=== PATIENT | male | born 1975 | race Hispanic/Latino ===

== ENCOUNTER 2022-08-02 06:30 | Day surgery (SDC) | payer OTHER ==
[2022-07-29 10:24] LABS: BASOPHILS % (AUTO) 0.4 % (0.0-5.0); HEMATOCRIT 42.2 % (42-54); LYMPHOCYTES % (AUTO) 31.9 % (21.0-51.0); MEAN CORPUSCULAR HEMOGLOBIN 31.1 pg (27.0-33.0); MEAN CORPUSCULAR HGB CONC 34.1 g/dL (32.0-36.0); MEAN CORPUSCULAR VOLUME 91.1 fL (79-99); MONOCYTES % (AUTO) 8.6 % (3.0-13.0); NEUTROPHILS % (AUTO) 55.7 % (40.0-77.0); PLATELET COUNT (AUTO) 198 K/uL (130-400); RED BLOOD CELL COUNT(AUTO) 4.63 MIL/uL (4.50-6.20); RED CELL DISTRIBUTION WIDTH 13.1 % (11.0-15.5); WHITE BLOOD COUNT (AUTO) 5.7 K/uL (4.8-10.8)
[2022-07-29 10:28] LABS: CREATININE 0.8 mg/dL (0.5-1.5)
[2022-07-29] MEDS: CEFAZOLIN SODIUM 1 GM VIAL IVPB SCH (10:30)
[2022-07-30 10:00] VITALS: BP 131/77
[~2022-08-02] VITALS: Ht 172.7 cm; Wt 89.6 kg
[2022-08-02] VITALS (17 sets, daily range): BP systolic 109–139; BP diastolic 61–96
[~2022-08-02 06:30] MED LIST: 0.9%NACL 1000ML 1,000 ML IV SCH; BICT1TAB PO; BUPIVACAINE/PF 0.5% 10ML VIAL ONE; BUSP10TA3 PO; PRAZ1CAP5 PO; SERT-440 PO; ZOLP10TA2 PO
[2022-08-02] MEDS ORDERED: LACTATED RINGERS 1000ML 1,000 ML IV ONE (06:54)
[2022-08-02] MEDS ORDERED: SUCCINYLCHOLINE 200MG/10ML SYR ONE (07:21)
[2022-08-02] MEDS ORDERED: LIDOCAINE PF 100MG/5ML (2%) SYRINGE 5ML ONE (07:21)
[2022-08-02] MEDS ORDERED: MIDAZOLAM HCL 1 MG/ML 2ML VIAL ONE (07:22)
[2022-08-02] MEDS ORDERED: PROPOFOL 10 MG/ML 20ML VIAL IV ONE (07:22)
[2022-08-02] MEDS ORDERED: FENTANYL CITRATE PF 50 MCG/1 ML 2ML VIAL ONE (07:23)
[2022-08-02] MEDS ORDERED: ROCURONIUM 10MG/1ML SYR 10 MG/ML ML ONE (07:23)
[2022-08-02] MEDS ORDERED: GLYCOPYRROLATE 1 MG/5 ML SYRINGE ONE (07:32)
[2022-08-02] MEDS ORDERED: ONDANSETRON 4MG INJ ONE ×2 (07:32→09:04)
[2022-08-02] MEDS ORDERED: NEOSTIGMINE 5MG/5ML SYR IV ONE (07:33)
[2022-08-02] MEDS: CEFAZOLIN SODIUM 1 GM VIAL IVPB SCH (08:03)
[2022-08-02] MEDS ORDERED: MEPERIDINE-PF 25 MG/ML SYG ONE ×2 (09:04→09:27)
== END 2022-08-02 10:45 | disposition home or self-care (01) ==
LOC: DAH 06:30
PROVIDERS: ATTEND Surgery
DX: D17.1 Benign lipomatous neoplasm of skin and subcutaneous tissue of trunk (principal); Z20.822 Contact with and (suspected) exposure to COVID-19; F41.9 Anxiety disorder, unspecified; F32.A Depression, unspecified; Z21 Asymptomatic human immunodeficiency virus [HIV] infection status; Z79.899 Other long term (current) drug therapy
CPT/HCPCS: 80048; 85025; 87426; 36415; 21933; 88304; A6260; A4663; A4452; J7120; J3010; J0690; J0330; J3490 ×2; J2710; J2001; J2250; J2704; J2405 ×2; J2175 ×2; A4930; A4215; A4223; A4222; A4221; A4600

== ENCOUNTER 2022-11-08 06:21 | Day surgery (SDC) | payer OTHER ==
[2022-11-04 15:36] VITALS: BP 165/64
[2022-11-08] VITALS (10 sets, daily range): BP systolic 106–130; BP diastolic 64–87
[~2022-11-08] VITALS: Ht 172.7 cm; Wt 95.0 kg
[~2022-11-08 06:21] MED LIST changes: -0.9%NACL 1000ML 1,000 ML IV SCH; -BUPIVACAINE/PF 0.5% 10ML VIAL ONE; -BUSP10TA3 PO; +BUSP15TA3 PO; +CHOL2000 PO; +FISH1CAP63 PO; +FLAX100020 PO; +KRIL1CAP29 PO; +QUET50TA24 PO; -ZOLP10TA2 PO
[2022-11-08] MEDS ORDERED: BUPIVACAINE/PF 0.25% 10ML VIAL IJ ONE (06:46)
[2022-11-08] MEDS ORDERED: LIDOCAINE HCL 1% 20 ML VIAL ONE (06:46)
[2022-11-08] MEDS ORDERED: CEFAZOLIN SODIUM 2 GM VIAL ONE (06:55)
[2022-11-08] MEDS ORDERED: LACTATED RINGERS 1000ML 1,000 ML IV ONE (06:55)
[2022-11-08] MEDS ORDERED: MIDAZOLAM HCL 1 MG/ML 2ML VIAL ONE (08:37)
[2022-11-08] MEDS ORDERED: PROPOFOL 10 MG/ML 20ML VIAL IV ONE ×2 (08:38→09:06)
[2022-11-08] MEDS ORDERED: ROCURONIUM 10MG/1ML SYR 10 MG/ML ML ONE (08:38)
[2022-11-08] MEDS ORDERED: FENTANYL CITRATE PF 50 MCG/1 ML 2ML VIAL ONE (08:38)
== END 2022-11-08 10:35 | disposition home or self-care (01) ==
LOC: DAH 06:21
PROVIDERS: ATTEND Surgery
DX: M67.471 Ganglion, right ankle and foot (principal); Z20.822 Contact with and (suspected) exposure to COVID-19; F41.9 Anxiety disorder, unspecified; N40.0 Benign prostatic hyperplasia without lower urinary tract symptoms; Z21 Asymptomatic human immunodeficiency virus [HIV] infection status; F32.A Depression, unspecified; Z98.890 Other specified postprocedural states
CPT/HCPCS: 87426; 28090; A6260; A4663; A4606; A4452; J7120; J3010; J2250; J2704 ×2; J3490; J0690; A4649; A4215; A4223; A4222; A4221

== ENCOUNTER → 2024-10-04 | Outpatient (CLI) | payer OTHER ==
[~2024-10-04] MED LIST changes: +GLIM4TAB36 PO; +INSLAN SQ; +METF-446 PO
--- NOTE | 2024-10-04 14:21 | HMCIMG ---
Testicular ultrasound with color-flow Doppler Findings: The testes are of normal size and echogenicity. The right testis measures 4.1 x 2.2 x 3.9 cm. The left testis measures 3.9 x 2.1 x 2.8 cm. Vascular flow is preserved to both testes- there is no evidence of torsion. No testicular masses or inflammatory changes are seen. There are bilateral small hydroceles. No varicoceles noted. The epididymus are unremarkable bilaterally. The scrotal skin shows no thickening or inflammatory changes. Impression: Bilateral small hydroceles. No neoplasm identified.
== END | disposition home or self-care (01) ==
LOC: RAH 13:13
PROVIDERS: ATTEND Internal Medicine
DX: N43.2 Other hydrocele (principal); N50.812 Left testicular pain; N50.811 Right testicular pain
CPT/HCPCS: 76870